=== PATIENT | female | born 1995 | race African-American/Black ===

== ENCOUNTER 2019-09-30 22:27 | Emergency (ER) | payer MEDICAID ==
[~2019-09-30] VITALS: Ht 167.6 cm; Wt 69.5 kg
[2019-09-30] MEDS ORDERED: KETOROLAC 30MG/ML VIAL IV ONE (23:15)
[2019-09-30] MEDS ORDERED: SODIUM CHLORIDE 0.9% 500 ML IV ONE (23:15)
[2019-09-30 23:46] LABS: CHLORIDE 106 mEq/L (98-107)
[2019-09-30 23:50] LABS: BASOPHILS % 0.7 % (0.0-2.0); EOSINOPHILS % 0.1 % (0.0-5.0); HEMATOCRIT. 40.7 % (36.0-48.0); HEMOGLOBIN. 13.9 g/dL (12.0-16.0); LYMPHOCYTES % 8.6 % (20.0-50.0); MEAN CORPUSCULAR HEMOGLOBIN 31.2 pg (28.0-32.0); MEAN CORPUSCULAR VOLUME 91.7 fL (81.0-99.0); MEAN PLATELET VOLUME 8.7 fl (7.4-10.4); MONOCYTES % 14.4 % (2.0-8.0); NEUTROPHILS % 76.2 % (40.0-76.0); PLATELET 255 x1000/uL (130-400); RED BLOOD CELL COUNT 4.44 mill/uL (4.2-5.4); RED CELL DISTRIBUTION WIDTH 13.1 % (11.6-14.6)
[2019-10-01 00:03] LABS: HCG SCREEN NEGATIVE
[2019-10-01 00:57] VITALS: BP 114/71
== END 2019-10-01 01:41 | disposition home or self-care (01) ==
LOC: ER 22:27
DX: U07.1 COVID-19 (principal); B34.9 Viral infection, unspecified; I49.9 Cardiac arrhythmia, unspecified; Z88.1 Allergy status to other antibiotic agents
CPT/HCPCS: 36415; 71045; 80053; 83880; 84484; 84703; 85025; 87635; 93005; 96361; 96374; 99285; C9803; J1885; J7040